=== PATIENT | male | born 1990 | race Two or more races ===

== ENCOUNTER 2020-04-06 14:22 | Inpatient (IN) | payer OTHER ==
[~2020-04-06] VITALS: Ht 188 cm; Wt 74.7 kg
[2020-04-06] MEDS ORDERED: SODIUM CHLORIDE 0.9% 1,000 ML IV ONE (14:45)
[2020-04-06 14:54] LABS: Basophils # (auto) 0.1 10 ^3/uL (0-0.2); Basophils % (auto) 0.7 % (0.0-2.0); Eosinophils # (auto) 0.1 10 ^3/uL (0-0.8); Eosinophils % (auto) 0.7 % (0.0-7.0); Hematocrit 49.6 % (41.0-53.0); Hemoglobin 16.8 g/dL (13.5-17.5); Lymphocytes # (auto) 2.1 10 ^3/uL (0.4-5.4); Lymphocytes % (auto) 27.7 % (10.0-50.0); Mean Corpuscular Hgb Conc. 33.9 g/dL (32.0-36.0); Mean Corpuscular Volume 91.3 fL (80.0-100.0); Monocytes # (auto) 0.5 10 ^3/uL (0-1.3); Monocytes % (auto) 5.9 % (0.0-12.0); Nucleated Red Blood Cells % 0.1 %; Platelet Count (auto) 202 10^3/uL (140-450); Red Blood Cells 5.43 10^6/uL (4.5-5.90); Red Cell Distribution Width 13.3 % (11.8-14.3); White Blood Cell 7.6 10^3/uL (4.4-10.8)
[2020-04-06 15:07] LABS: Albumin 4.4 g/dL (3.4-5.0); Calcium 9.5 mg/dL (8.5-10.1)
[2020-04-06 15:11] LABS: BUN/Creatinine Ratio 15.2; Bilirubin, Total 3.1 mg/dL (0.2-1.0); Total Protein 7.9 g/dL (6.4-8.2)
[2020-04-06 19:01] LABS: Urine Bacteria NONE SEEN /hpf (None Seen); Urine Blood Negative /uL (Negative); Urine Specific Gravity 1.032 (1.001-1.035); Urine WBC 229 /hpf (0 - 3)
[2020-04-06] MEDS ORDERED: metFORMIN HYDROCHLORIDE 850 MG TAB PO ONE (19:45)
[2020-04-06] MEDS ORDERED: NITROGLYCERIN 0.4 MG SL TAB SL PRN (19:45)
[2020-04-06] MEDS ORDERED: DEXTROSE (50%) 50ML SYRG IV PRN (20:45)
[2020-04-06 21:46] VITALS: BP 128/78
--- NOTE | 2020-04-06 21:46 | NUR ---
MS admit from ER SANDY CALDERON admitted to tele/MS after SBAR received. Patient oriented to DYLAN JONES, RN primary RN, unit, room, bed, and unit policies regarding patient care and visiting hours. Patient weighed by bedscale and encouraged to call if they need something. All questions and concerns addressed, patient verbalized understanding. Safety measures in place, bed in lowest position, side rails up x2, and call light within reach. Guards at the bedside.
[2020-04-06 22:00] VITALS: BP 128/78
[2020-04-06] MEDS ORDERED: InsuLIN REG 1unit/0.01ml Soln (100units/ml) SC SCH (22:00)
[2020-04-06] MEDS ORDERED: SULFAMETHOX W/TRIMETH(800/160MG) DS TAB PO SCH (22:00)
[2020-04-06] MEDS: ACCU-CHEK COMFORT CURVE STRIP VI SCH (22:49)
[2020-04-06] MEDS: SOD CHL 0.45% 1,000 ML IV SCH (22:55)
[2020-04-07 05:00] VITALS: BP 118/69
[2020-04-07] MEDS: SOD CHL 0.45% 1,000 ML IV SCH ×2 (06:46→09:05)
[2020-04-07] MEDS: ACCU-CHEK COMFORT CURVE STRIP VI SCH (06:47)
[2020-04-07 06:58] LABS: BUN/Creatinine Ratio 14.1; Calcium 8.6 mg/dL (8.5-10.1); Potassium 3.2 mmol/L (3.5-5.1)
[2020-04-07] MEDS ORDERED: InsuLIN REG 1unit/0.01ml Soln (100units/ml) SC SCH (07:00)
--- NOTE | 2020-04-07 07:45 | NUR ---
Opening Shift Note: Assumed care of patient, awake and alert. No S/S of distress/SOB or pain. Bed in lowest locked position, side rails up x 2, call light within reach. Guards at bedside. Patient instructed on POC and to call for assist PRN, will continue to monitor for changes Q1hr and PRN.
[2020-04-07 09:00] VITALS: BP 125/71
[2020-04-07] MEDS ORDERED: POTASSIUM CHL 20 Meq TABLET PO ONE (09:45)
[2020-04-07] MEDS ORDERED: metFORMIN HYDROCHLORIDE 850 MG TAB PO SCH (10:00)
--- NOTE | 2020-04-07 10:03 | NUR ---
AMA Note: SANDY CALDERON states they want to leave the hospital Against Medical Advice (AMA). Patient encouraged to stay for further treatment/stabilization. No Fountain MD notified of patient's wishes. Patient advised of the risks and benefits of leaving AMA. Patient verbalized understanding. Patient encouraged to return to the ER if symptoms do not improve or worsen.
[2020-04-09 12:23] LABS: Hepatitis A Ab IgM Negative; Hepatitis B Core IgM Negative; Hepatitis B Surface Antigen Negative (Negative); Hepatitis C Antibody Negative (Negative)
== END 2020-04-07 10:03 | disposition left against medical advice (07) | DRG 638 ==
LOC: ER 14:22 → EEVIPCON 14:23 → OVERFLOW 14:23 → WEST WING 21:56
PROVIDERS: ADMIT Internal Medicine; ATTEND Internal Medicine
DX: E11.65 Type 2 diabetes mellitus with hyperglycemia (principal); N39.0 Urinary tract infection, site not specified; K75.9 Inflammatory liver disease, unspecified; Z20.828 Contact with and (suspected) exposure to other viral communicable diseases; Z53.29 Procedure and treatment not carried out because of patient's decision for other reasons; Z83.3 Family history of diabetes mellitus; Z82.49 Family history of ischemic heart disease and other diseases of the circulatory system; Z87.891 Personal history of nicotine dependence; Z88.0 Allergy status to penicillin; Z79.84 Long term (current) use of oral hypoglycemic drugs; Z91.14 Patient's other noncompliance with medication regimen
CPT/HCPCS: 36415; 71045; 80048; 80053; 80074; 81001; 82010; 82962; 85025; 93005; 96360; G0378; J1815